=== PATIENT | male | born 1985 | race Caucasian/White ===

== ENCOUNTER 2019-05-07 21:38 | Emergency (ER) | payer OTHER ==
[2019-05-07 21:44] VITALS: TEMP 98.5; BMI 27.7
[2019-05-07] MEDS ORDERED: FAMOTIDINE 20 MG/50 ML IVPB 20 MG/50 ML MG IVPB ONE (22:42)
[2019-05-07] MEDS ORDERED: METOCLOPRAMIDE HCL INJECTION 10 MG/2 ML VIAL IVPB ONE (22:42)
[2019-05-07] MEDS ORDERED: SODIUM CHLORIDE 1,000 ML IV STA (22:42)
--- NOTE | 2019-05-07 22:53 | PDOC ---
History of Present Illness - General Chief Complaint: Pain, Acute Stated Complaint: ABD PAIN X 3 DAYS Time Seen by Provider: 05/07/19 22:33 History Source: Patient Exam Limitations: Clinical Condition - History of Present Illness Initial Comments: 05/07/19 22:50 Patient with no significant past medical history present with complaint of 3- day history of epigastric pain which is worse with food and unable to eat food due to worsening pain every time he eats. Denies diarrhea or constipation. Reported bowel movement this morning which was soft. Reported nausea but denies vomiting. Denies fever, chills, shortness of breath, weakness, palpitations. Denies history of abdominal surgery or GERD. Patient has not taken anything for symptoms Is this a multiple visit Asthma Patient?: No Timing/Duration: other (3 days) Past History - Past Medical History Allergies/Adverse Reactions: Allergies Allergy/AdvReac Type Severity Reaction Status Date / Time No Known Allergies Allergy Verified 05/07/19 23:07 COPD: No - Psycho Social/Smoking Cessation Hx Smoking History: Never smoked Hx Alcohol Use: No Drug/Substance Use Hx: No Review of Systems - Review of Systems Able to Perform ROS?: Yes Is the patient limited Jamaican proficient: No Constitutional: No: Chills, Fever, Malaise HEENTM: No: Symptoms Reported, See HPI, Eye Pain, Blurred Vision, Tearing, Recent change in vision, Double Vision, Cataracts, Ear Pain, Ocular Prothesis, Ear Discharge, Nose Pain, Nose Congestion, Tinnitus, Nose Bleeding, Hearing Loss , Throat Pain, Throat Swelling, Mouth Pain, Dental Problems, Difficulty Swallowing, Mouth Swelling, Other Respiratory: No: Symptoms reported, See HPI, Cough, Orthopnea, Shortness of Breath, SOB with Exertion, SOB at Rest, Stridor, Wheezing, Productive cough, Hemoptysis, Other Cardiac (ROS): No: Symptoms Reported, See HPI, Chest Pain, Edema, Irregular Heart Rate, Lightheadedness, Palpitations, Syncope, Chest Tightness, Other ABD/GI: Yes: Symptoms Reported, See HPI, Nausea, Abdominal cramping (epigastric pain). No: Abd. Pain w/ defecation, Blood Streaked Bowels, Constipated, Diarrhea, Difficulty Swallowing, Poor Appetite, Poor Fluid Intake, Rectal Bleeding, Vomiting, Indigestion : No: Burning, Discharge, Frequency, Urgency Neurological: No: Symptoms reported All Other Systems: Reviewed and Negative *Physical Exam - Vital Signs Last Vital Signs Temp Pulse Resp BP Pulse Ox 98.5 F 67 19 136/76 100 05/07/19 21:41 05/07/19 21:41 05/07/19 21:41 05/07/19 21:41 05/07/19 21:41 - Physical Exam 05/07/19 22:52 GENERAL: Well developed, well nourished. Awake and alert. No acute distress. HEENT: Normocephalic, atraumatic. PERRLA, EOMI. No conjunctival pallor. Sclera are non-icteric. Moist mucous membranes. Oropharynx is clear. NECK: Supple. Full ROM. CARDIOVASCULAR: Regular rate and rhythm. No murmurs, rubs, or gallops. Distal pulses are 2+ and symmetric. PULMONARY: No evidence of respiratory distress. Lungs clear to auscultation bilaterally. No wheezing, rales or rhonchi. ABDOMINAL: Soft. Moderate epigastric tenderness. Non-distended. No rebound or guarding. No organomegaly. Normoactive bowel sounds. MUSCULOSKELETAL Normal range of motion at all joints. SKIN: Warm and dry. Normal capillary refill. No rashes. No jaundice. NEUROLOGICAL: Alert, awake, appropriate. Gait is normal without ataxia. PSYCHIATRIC: Cooperative. Good eye contact. Appropriate mood General Appearance: Yes: Nourished, Appropriately Dressed, Mild Distress ED Treatment Course - LABORATORY CBC & Chemistry Diagram: 05/07/19 22:50 05/07/19 22:50 - RADIOLOGY Radiology Studies Ordered: Category Date Time Status ABDOMEN US -LIMITED [US] Stat Ultrasound 05/07/19 22:44 Ordered Medical Decision Making - Medical Decision Making 05/07/19 22:51 Patient with no significant past medical history present with complaint of 3- day history of epigastric pain which is worse with food and unable to eat food due to worsening pain every time he eats. Denies diarrhea or constipation. Reported bowel movement this morning which was soft. Reported nausea but denies vomiting. Denies fever, chills, shortness of breath, weakness, palpitations. Denies history of abdominal surgery or GERD. Patient has not taken anything for symptoms Exam significant for moderate tenderness to epigastric region without guarding or rebound. Patient afebrile. Symptoms likely cholecystitis versus gastritis versus less likely pancreatitis. CBC, CMP and lipase lab ordered. IV hydration with 1 L normal saline ordered and Pepcid 20 mg IV ordered for epigastric pain. Abdominal ultrasound ordered to rule out cholecystitis appendicitis. Treat based on lab and imaging results 05/08/19 00:03 Patient with elevated LFTs. Patient pending ultrasound reading. Patient signed out to attending Dr. Jackson who will manage patient Discharge - Discharge Information Problems reviewed: Yes Clinical Impression/Diagnosis: Epigastric abdominal pain Condition: Stable - Admission No - Follow up/Referral - Patient Discharge Instructions - Post Discharge Activity
[2019-05-07 23:04] LABS: BASO % 0.4 % (0-2.0); EOS % 0.6 % (0-4.5); HEMATOCRIT 44.6 % (35.4-49); LYMPH % 28.6 % (8-40); MCH 32.1 pg (25.7-33.7); MCHC 33.7 g/dl (32.0-35.9); MEAN CELL VOLUME 95.3 fl (80-96); MEAN PLT VOLUME 9.8 fl (7.5-11.1); MONO % 13.7 % (3.8-10.2); NEUT % 56.7 % (42.8-82.8); PLATELET COUNT 181 K/MM3 (134-434); RBC 4.69 M/mm3 (4.00-5.60); RDW 14.7 % (11.9-15.9); WHITE BLOOD COUNT 7.9 K/mm3 (4.0-10.0)
[2019-05-07] MEDS ORDERED: MAG HYDROX/AL HYDROX/SIMETH 30 ML UNIT-DOSE CUP PO ONE (23:23)
[2019-05-07 23:36] LABS: ALBUMIN 3.9 g/dl (3.4-5.0); BILIRUBIN,TOTAL 3.8 mg/dL (0.2-1); BLOOD UREA NITROGEN 9.7 mg/dL (7-18); CREATININE 0.9 mg/dL (0.55-1.3); TOT PROT 7.2 g/dl (6.4-8.2)
--- NOTE | 2019-05-08 00:07 | PDOC ---
*Physical Exam - Vital Signs Last Vital Signs Temp Pulse Resp BP Pulse Ox 98.5 F 67 19 136/76 100 05/07/19 21:41 05/07/19 21:41 05/07/19 21:41 05/07/19 21:41 05/07/19 21:41 <Breanna Jacksonh - Last Filed: 05/08/19 00:59> - Vital Signs Last Vital Signs Temp Pulse Resp BP Pulse Ox 98.5 F 67 19 136/76 100 05/07/19 21:41 05/07/19 21:41 05/07/19 21:41 05/07/19 21:41 05/07/19 21:41 <StoneniltonJory Masha - Last Filed: 05/08/19 03:40> ED Treatment Course - LABORATORY CBC & Chemistry Diagram: 05/07/19 22:50 05/07/19 22:50 - ADDITIONAL ORDERS Additional order review: Laboratory Results 05/07/19 05/07/19 22:50 22:50 Sodium 141 Potassium 4.0 Chloride 106 Carbon Dioxide 30 Anion Gap 5 L BUN 9.7 Creatinine 0.9 Est GFR (CKD-EPI)AfAm 130.52 Est GFR (CKD-EPI)NonAf 112.62 Random Glucose 96 Calcium 9.0 Total Bilirubin 3.8 H AST 318 H ALT 473 H Alkaline Phosphatase 168 H Total Protein 7.2 Albumin 3.9 Lipase 113 05/07/19 22:50 RBC 4.69 MCV 95.3 MCHC 33.7 RDW 14.7 MPV 9.8 Neutrophils % 56.7 Lymphocytes % 28.6 Monocytes % 13.7 H Eosinophils % 0.6 Basophils % 0.4 - Medications Given in the ED: ED Medications Discontinued Medications Generic Name Dose Route Start Last Admin Trade Name Freq PRN Reason Stop Dose Admin Famotidine/Sodium Chloride 20 mg in 50 mls @ 100 mls/hr 05/07/19 22:42 23:11 Pepcid 20 Mg Premixed Ivpb - IVPB 05/07/19 23:11 100 mls/hr ONCE ONE Administration Sodium Chloride 1,000 mls @ 1,000 mls/hr 05/07/19 22:42 05/07/19 23:11 Normal Saline - IV 05/07/19 23:41 1,000 mls/hr ASDIR STA Administration Metoclopramide HCl 10 mg 05/07/19 22:42 05/07/19 23:12 Reglan Injection - IVPB 05/07/19 22:43 10 mg ONCE ONE Administration <Breanna Jackson - Last Filed: 05/08/19 00:59> - LABORATORY CBC & Chemistry Diagram: 05/07/19 22:50 05/07/19 22:50 - ADDITIONAL ORDERS Additional order review: Laboratory Results 05/07/19 05/07/19 22:50 22:50 Sodium 141 Potassium 4.0 Chloride 106 Carbon Dioxide 30 Anion Gap 5 L BUN 9.7 Creatinine 0.9 Est GFR (CKD-EPI)AfAm 130.52 Est GFR (CKD-EPI)NonAf 112.62 Random Glucose 96 Calcium 9.0 Total Bilirubin 3.8 H AST 318 H ALT 473 H Alkaline Phosphatase 168 H Total Protein 7.2 Albumin 3.9 Lipase 113 05/07/19 22:50 RBC 4.69 MCV 95.3 MCHC 33.7 RDW 14.7 MPV 9.8 Neutrophils % 56.7 Lymphocytes % 28.6 Monocytes % 13.7 H Eosinophils % 0.6 Basophils % 0.4 - Medications Given in the ED: ED Medications Discontinued Medications Generic Name Dose Route Start Last Admin Trade Name Freq PRN Reason Stop Dose Admin Al Hydroxide/Mg Hydroxide 30 ml 05/07/19 23:23 05/08/19 00:48 Mylanta Oral Suspension - PO 05/07/19 23:24 30 ml ONCE ONE Administration Famotidine/Sodium Chloride 20 mg in 50 mls @ 100 mls/hr 05/07/19 22:42 23:11 Pepcid 20 Mg Premixed Ivpb - IVPB 05/07/19 23:11 100 mls/hr ONCE ONE Administration Sodium Chloride 1,000 mls @ 1,000 mls/hr 05/07/19 22:42 05/07/19 23:11 Normal Saline - IV 05/07/19 23:41 1,000 mls/hr ASDIR STA Administration Metoclopramide HCl 10 mg 05/07/19 22:42 05/07/19 23:12 Reglan Injection - IVPB 05/07/19 22:43 10 mg ONCE ONE Administration <Jory Parsons - Last Filed: 05/08/19 03:40> Medical Decision Making - Medical Decision Making 05/08/19 00:05 JIMMY Malone signed out the ultrasound findings for this 33-year-old male who presented with some epigastric pain and mild nausea rating to his back He denies any significant alcohol use He denies any history of gallstones or history of elevated liver function He does not have her regular primary physician at this time Total bili is elevated to 3.8 and although transaminases are elevated Gallbladder ultrasound results pending 05/08/19 00:59 Abdominal ultrasound limited findings Normal liver No gallstones, gallbladder wall thickening or pericholecystic fluid Gallbladder is somewhat distended Normal common bile duct at 4.5 mm Pancreas is not well visualized due to bowel gas No right hydronephrosis Nerve right upper quadrant free fluid <Breanna Jackson - Last Filed: 05/08/19 00:59> Discharge <Breanna Jackson - Last Filed: 05/08/19 00:59> - Discharge Information Problems reviewed: Yes - Admission No <Jory Parsons - Last Filed: 05/08/19 03:40> - Discharge Information Clinical Impression/Diagnosis: Epigastric abdominal pain Condition: Stable Disposition: HOME - Additional Discharge Information Plan of Treatment: Please see your primary care doctor in 10-14 days for a recheck of your LIVER TESTS. - Patient Discharge Instructions Additional Instructions: Please see your [facility] care doctor in 10-14 days for a recheck of your LIVER TESTS. Your liver tests today had a slight elevation. Please bring a copy of your blood test results with you to your doctor. Avoid spicy/fatty foods, avoid foods with high acid like citrus fruit, fried food, black coffee. Prescriptions have been sent to your pharmacy: [facility].
[2019-05-08] MEDS ORDERED: MAG HYDROX/AL HYDROX/SIMETH 30 ML UNIT-DOSE CUP ONE (00:30)
[2019-05-08 03:58] VITALS: BP 130/70; PULSE 70
[2019-05-10 21:06] LABS: HEP B CORE AB, TOT Negative (Negative)
== END 2019-05-08 03:58 | disposition home or self-care (01) ==
LOC: JER 21:38
PROC: 3E033GC Introduction of Other Therapeutic Substance into Peripheral Vein, Percutaneous Approach (ICD-10-PCS; principal; 2019-05-07)
PROC: 3E033GC Introduction of Other Therapeutic Substance into Peripheral Vein, Percutaneous Approach (ICD-10-PCS; 2019-05-07)
DX: R10.13 Epigastric pain (principal)
CPT/HCPCS: 36415; 74177-TC; 76705-TC; 80053; 83690; 85025; 86704; 86706; 86707; 86708; 86709; 87340; 99282-25; J7030